=== PATIENT | male | born 1980 | race Caucasian/White ===

== ENCOUNTER → 2016-06-23 | Outpatient (CLI) | payer MEDICAID, OTHER, SELFPAY ==
[~2016-06-23] MED LIST: OXYC-141 PO; ZOFR4TAB3 PO
[2016-06-23 21:11] LABS: ALBUMIN 4.2 GM/DL (3.2-5.2); ALBUMIN/GLOBULIN RATIO 1.31 (1.00-1.93); ALKALINE PHOSPHATASE 54 U/L (45-117); ALT/SGPT 38 U/L (12-78); ANION GAP 9 MEQ/L (8-16); AST/SGOT 17 U/L (15-37); BILIRUBIN,TOTAL 0.6 MG/DL (0.2-1.0); BLOOD UREA NITROGEN 11 MG/DL (7-18); CALCIUM LEVEL 8.8 MG/DL (8.5-10.1); CARBON DIOXIDE LEVEL 26 MEQ/L (21-32); CHLORIDE LEVEL 107 MEQ/L (98-107); CHOLESTEROL LEVEL 171 MG/DL (<200); CREATININE FOR GFR 0.76 MG/DL (0.70-1.30); GLOMERULAR FILTRATION RATE > 60.0 (>60); GLUCOSE, FASTING 85 MG/DL (70-105); POTASSIUM SERUM 4.3 MEQ/L (3.5-5.1); SODIUM LEVEL 142 MEQ/L (136-145); TOTAL PROTEIN 7.4 GM/DL (6.4-8.2); TRIGLYCERIDES LEVEL 113 MG/DL (<150)
== END ==
LOC: M ADAMS 13:09
PROVIDERS: ATTEND Physician Assistant Medical
DX: Z00.00 Encounter for general adult medical examination without abnormal findings (principal); E78.2 Mixed hyperlipidemia; E55.9 Vitamin D deficiency, unspecified

== ENCOUNTER → 2019-04-25 | Outpatient (CLI) | payer OTHER ==
[~2019-04-25] MED LIST changes: +ZOFR4TAB14 PO; -ZOFR4TAB3 PO
--- NOTE | 2019-04-25 12:10 | REP ---
RIGHT KNEE, FIVE VIEWS: There is no evidence of an acute fracture, dislocation or intrinsic bone disease. Joint spaces appear unremarkable. I do not see a definite joint effusion. IMPRESSION: No fracture or dislocation. Further evaluation may be made with MRI if clinically indicated. Electronically Signed by Kian Austin MD 04/25/2019 04:09 P
== END ==
LOC: M ADAMS 11:04
PROVIDERS: ATTEND Physician Assistant
DX: M23.91 Unspecified internal derangement of right knee (principal)

== ENCOUNTER 2019-09-25 15:10 | Day surgery (SDC) | payer OTHER ==
[2019-09-25] MEDS ORDERED: ceFAZolin 2 GM/D5W 50 ML IV BAG (J0690 PER 500MG) As Ordered ONE (15:27)
[2019-09-25] MEDS ORDERED: ceFAZolin 2 GM/D5W 50 ML IV BAG (J0690 PER 500MG) ONE (15:27)
[2019-09-25] MEDS ORDERED: ceFAZolin 1GM VIAL (J0690 PER 500MG) ONE (15:27)
[2019-09-25] MEDS ORDERED: ceFAZolin 1GM VIAL (J0690 PER 500MG) As Ordered ONE (15:28)
[2019-09-25] MEDS ORDERED: propofoL 200 MG/20 ML VIAL As Ordered ONE ×2 (15:55→17:15)
[2019-09-25] MEDS ORDERED: fentaNYL 250 MCG/5 ML INJECTION (J3010) As Ordered ONE (15:58)
[2019-09-25] MEDS ORDERED: MIDAZOLAM INJ 2MG/2ML VIAL (J2250 PER 1MG) As Ordered ONE (15:59)
[2019-09-25] MEDS ORDERED: ONDANSETRON 4MG/2ML VIAL As Ordered ONE ×2 (16:01→18:41)
[2019-09-25] MEDS ORDERED: LIDOCAINE 2% 100MG/5ML SDV (FOR ANES.) As Ordered ONE (16:01)
[2019-09-25] MEDS ORDERED: PHENYLephrine HCL 500 MCG/5 ML (100MCG/ML) SYRINGE (J2370) As Ordered ONE ×2 (16:33→17:19)
[2019-09-25] MEDS ORDERED: LIDOCAINE 1% SDV 30ML VIAL As Ordered ONE (16:35)
[2019-09-25] MEDS ORDERED: BUPIVACAINE HCL 0.25% 30ML VIAL As Ordered ONE (16:35)
[2019-09-25] MEDS ORDERED: ACETAMINOPHEN 1000MG 100ML IV BTL (OFIRMEV) (J0131 PER 10MG) As Ordered ONE (17:00)
[2019-09-25] MEDS ORDERED: ePHEDrine SULFATE 25 MG/5 ML(5MG/ML) SYRINGE As Ordered ONE (17:11)
[2019-09-25] MEDS ORDERED: HYDROmorphone HCL 2 MG/ML 1ML VIAL (J1170) As Ordered ONE (17:56)
[2019-09-25] MEDS ORDERED: ONDANSETRON 4MG/2ML VIAL ONE (18:40)
[2019-09-25] MEDS ORDERED: PERCOCET 5MG/325MG TAB As Ordered ONE ×2 (18:40→19:16)
[2019-09-25] MEDS ORDERED: PERCOCET 5MG/325MG TAB ONE ×2 (18:40→19:16)
--- NOTE | 2019-11-29 13:19 | RO ---
DATE OF PROCEDURE: 09/25/2019 PREOPERATIVE DIAGNOSIS: Right testicular mass. POSTOPERATIVE DIAGNOSIS: Right testicular mass. PROCEDURES: Right radical orchiectomy. SURGEON: Edwin Mandel MD ROBOTICS TECHNICIAN: None. ANESTHESIA: General. 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 He was brought to the operating room today for the above listed procedure. DESCRIPTION OF PROCEDURE: The patient was brought to the operating room and general anesthesia was induced. Prophylactic antibiotics were infused. He was then placed in supine position and prepped and draped in the usual sterile fashion. At this point, an approximately 4-5 cm inguinal incision was made. We then dissected down through the subcutaneous tissue. At this point, the external oblique fascia was opened using cautery. The right spermatic cord was then identified. A Salvisa drain was placed around the cord. At this point, the testicle was pushed up through the right inguinal canal and all of the gubernacular fibers were released using Bovie electrocautery. Once the testicle was completely released from the scrotum, the spermatic cord was dissected proximally using electrocautery. We dissected up to the level of the internal ring. At this point, a right angled clamp was placed around the cord. The cord was then into two packets just distal to the clamp and each packet was ligated with a 0-silk suture. Then, a 0-silk ligature was placed proximal to the right angled clamp. The spermatic cord was then transected just distal to the 0- silk ties and then the testicle and spermatic cord were handed off the table to be sent for pathologic analysis. The wound was irrigated. At this point, we checked for hemostasis and there was no active bleeding. We then closed the fascia using a running 2-0 Vicryl suture. The subcutaneous tissue was then reapproximated using interrupted 3-0 Vicryl suture. The skin was closed with a running 4-0 Monocryl subcuticular stitch and then Dermabond was applied. This marked the conclusion of the procedure. The patient was then awakened from anesthesia and transferred to the recovery room in stable condition. ESTIMATED BLOOD LOSS: 10 mL. COMPLICATIONS: None. SPECIMENS: Right testicle and spermatic cord. PLAN: The patient will follow up in the clinic in a week or two for postoperative check, as well as pathology results. CORYD
== END 2019-09-25 20:33 | disposition home or self-care (01) ==
LOC: M SDC 15:10
PROVIDERS: ATTEND Urology
DX: C62.11 Malignant neoplasm of descended right testis (principal); E78.2 Mixed hyperlipidemia; K21.9 Gastro-esophageal reflux disease without esophagitis; Z79.899 Other long term (current) drug therapy
CPT/HCPCS: 54535; 88309; J0131; J0690; J1170; J2250; J2370; J2405; J3010; U0002

== ENCOUNTER → 2019-10-31 | Outpatient (REF) | payer OTHER | LOC: M LABDRWAD 17:48 | PROVIDERS: ATTEND Urology | DX: C62.90 Malignant neoplasm of unspecified testis, unspecified whether descended or undescended (principal) ==

== ENCOUNTER → 2020-04-29 | Outpatient (REF) | payer OTHER ==
[2020-04-29 17:25] LABS: ALBUMIN 4.6 GM/DL (3.2-5.2); ALT/SGPT 47 U/L (12-78); BILIRUBIN,TOTAL 0.6 MG/DL (0.2-1.0); BLOOD UREA NITROGEN 12 MG/DL (7-18); CARBON DIOXIDE LEVEL 30 MEQ/L (21-32); CHLORIDE LEVEL 106 MEQ/L (98-107); CHOLESTEROL LEVEL 218 MG/DL (<200); CHOLESTEROL RISK RATIO 5.317 (<5); CREATININE FOR GFR 0.81 MG/DL (0.70-1.30); GLOMERULAR FILTRATION RATE > 60.0 (>60); GLUCOSE, FASTING 88 MG/DL (70-100); HDL CHOLESTEROL 41 MG/DL (>40); LDL CHOLESTEROL 149 MG/DL (<100); NON-HDL-C 177 MG/DL; POTASSIUM SERUM 4.2 MEQ/L (3.5-5.1); SODIUM LEVEL 140 MEQ/L (136-145); TOTAL PROTEIN 7.8 GM/DL (6.4-8.2); TRIGLYCERIDES LEVEL 141 MG/DL (<150)
== END ==
LOC: M LABDRWAD 16:05
PROVIDERS: ATTEND Physician Assistant Medical
DX: E78.2 Mixed hyperlipidemia (principal)

== ENCOUNTER 2020-05-17 11:19 | Emergency (ER) | payer OTHER ==
[~2020-05-17] VITALS: Ht 177.8 cm; Wt 114.4 kg
[2020-05-17] MEDS ORDERED: SIMV40TA20 PO (11:28)
[2020-05-17] MEDS ORDERED: PANT40TA29 PO (11:28)
[2020-05-17] MEDS ORDERED: ACETAMINOPHEN 500 MG TAB PO ONE (11:35)
[2020-05-17 11:53] VITALS: O2SAT 94
[2020-05-17] MEDS ORDERED: KETOROLAC 30 MG/ML 1ML VIAL IV ONE (11:55)
--- NOTE | 2020-05-17 12:57 | REP ---
INDICATION: decreased left lower. exposed to covid. COMPARISON: No comparison study TECHNIQUE: Semi-erect portable AP radiograph. Two views. FINDINGS: There is linear platelike atelectasis and infiltrate in the left base. Subtle platelike atelectasis is seen along the dome of the diaphragm on the right as well. There is fissural thickening on the right. Heart is not enlarged. Lung lopes are otherwise clear. IMPRESSION: Infiltrate left base and platelike atelectasis both lung bases. Findings consistent with pneumonia. <Electronically signed by Aaron Ortiz > 05/17/20 [id number]
[2020-05-17 13:22] VITALS: BP 139/66
== END 2020-05-17 13:25 | disposition home or self-care (01) ==
LOC: M ED 11:19
DX: U07.1 COVID-19 (principal); J12.82 Pneumonia due to coronavirus disease 2019; E78.5 Hyperlipidemia, unspecified; K21.9 Gastro-esophageal reflux disease without esophagitis

== ENCOUNTER 2020-05-31 02:47 | Emergency (ER) | payer OTHER ==
[~2020-05-31] VITALS: Ht 180.3 cm; Wt 142.2 kg
[~2020-05-31 02:47] MED LIST changes: +PANT40TA29 PO; +SIMV40TA20 PO
[2020-05-31] MEDS ORDERED: IPRATROPIUM 0.5MG/ALBUTEROL 2.5MG INH SOL UD 3ML (DUONEB) NEB ONE (03:30)
[2020-05-31 03:42] LABS: INR 0.98; PROTHROMBIN TIME 13.2 SECONDS (12.5-14.3)
[2020-05-31 03:43] LABS: PARTIAL THROMBOPLASTIN TIME 34.1 SECONDS (24.2-38.5)
[2020-05-31 03:45] LABS: D-DIMER QUANT 322.6 ng/ml (<500)
[2020-05-31 03:59] LABS: ALBUMIN 3.9 GM/DL (3.2-5.2); ALT/SGPT 52 U/L (12-78); BILIRUBIN,DIRECT < 0.1 MG/DL (0.0-0.2); BILIRUBIN,TOTAL 0.3 MG/DL (0.2-1.0); BLOOD UREA NITROGEN 11 MG/DL (7-18); CALCIUM LEVEL 8.7 MG/DL (8.5-10.1); CARBON DIOXIDE LEVEL 25 MEQ/L (21-32); CHLORIDE LEVEL 110 MEQ/L (98-107); CPK CREATINE PHOSPHOKINASE 197 U/L (39-308); CREATININE FOR GFR 0.63 MG/DL (0.70-1.30); FERRITIN 362 NG/ML (26-388); GLOMERULAR FILTRATION RATE > 60.0 (>60); GLUCOSE, FASTING 118 MG/DL (70-100); LDH LACTATE DEHYDROGENASE 286 U/L (87-241); POTASSIUM SERUM 4.2 MEQ/L (3.5-5.1); SODIUM LEVEL 140 MEQ/L (136-145); TOTAL PROTEIN 7.6 GM/DL (6.4-8.2); TROPONIN I < 0.02 NG/ML (< 0.10)
[2020-05-31 04:10] VITALS: BP 146/85
[2020-05-31] MEDS ORDERED: predniSONE 20 MG TAB PO ONE (04:25)
--- NOTE | 2020-05-31 05:10 | REPVR ---
PROCEDURE INFORMATION: Exam: XR Chest Exam date and time: 05/31/2020 2:59 AM Age: 39 years old Clinical indication: Other: SOB, covid +; Additional info: SOB - covid + TECHNIQUE: Imaging protocol: XR of the chest. Views: 1 view. COMPARISON: SD Chest, 1 view 05/17/2020 12:17 PM FINDINGS: Lungs: Unremarkable. No consolidation. Pleural spaces: Unremarkable. No pleural effusion. No pneumothorax. Heart/Mediastinum: Unremarkable. No cardiomegaly. Bones/joints: Unremarkable. IMPRESSION: No acute findings. Electronically signed by: Paco Jones On 05/31/2020 05:10:34 AM
--- NOTE | 2020-05-31 09:35 | ECGEPIP ---
[facility] - ED Test Date: 2020-05-31 Pat Name: SCOTT RODRIGUEZ Department: Room: - Gender: Male [employer]: ALFRED : 1980 Requested By: Yifan Jackson Order Number: [id number] Reading MD: Fitz Zepeda Measurements Intervals [place] Rate: 99 P: 14 NE: 154 QRS: 6 QRSD: 94 T: 11 QT: 354 QTc: 454 Interpretive Statements Normal sinus rhythm Incomplete right bundle branch block NONSPECIFIC T WAVE ABNORMALITY(S) NO PRIORS FOR COMPARISON Electronically Signed on 05-31-2020 9:35:02 EDT by Fitz Zepeda
== END 2020-05-31 04:25 | disposition home or self-care (01) ==
LOC: M ED 02:47
DX: U07.1 COVID-19 (principal); E78.5 Hyperlipidemia, unspecified

== ENCOUNTER → 2020-07-01 | Outpatient (CLI) | payer OTHER ==
--- NOTE | 2020-07-01 09:08 | REPPI ---
INDICATION: COUGH COMPARISON: 05/17/2020 TECHNIQUE: PA and lateral. FINDINGS: The mediastinum and cardiac silhouette are normal. The lung lopes are clear and without acute consolidation, effusion, or pneumothorax. The skeletal structures are intact and normal. IMPRESSION: No acute cardiopulmonary process. <Electronically signed by Trevor Fernandez > 07/01/20 0904
== END ==
LOC: M PLAIMG 08:30
PROVIDERS: ATTEND Nurse Practitioner Family
DX: R05 Cough (principal)

== ENCOUNTER → 2020-07-29 | Outpatient (CLI) | payer OTHER ==
[~2020-07-29] MED LIST changes: +ISOVUE-370 76% 100ML VIAL As Ordered ONE
--- NOTE | 2020-07-30 05:14 | REP ---
INDICATION: TESTICULAR CA / LABS 1ST. COMPARISON: None TECHNIQUE: Axial contrast-enhanced images from the lung bases to the pubic symphysis using 100 cc Isovue 370 intravenous contrast material. Delayed images of the abdomen along with coronal and sagittal reformations obtained. This CT examination was performed using the following dose reduction techniques: Automated exposure control, adjustment of mA and/or kv according to the patient's size, and the use of iterative reconstruction technique. FINDINGS: Liver demonstrates diffuse hepatosteatosis without focal hepatic lesion. Spleen, pancreas, gallbladder, bilateral adrenal glands and kidneys are normal. The enteric system including stomach, small, and large bowel appears normal. No evidence for obstruction or acute inflammatory process. Normal terminal ileum and appendix are identified in the right lower quadrant. Pelvis demonstrates moderate to large bilateral fat containing inguinal hernias (right greater than left) and the right anterior bladder wall extends into the right inguinal hernia. The bladder itself is otherwise unremarkable in appearance. The prostate gland appears normal. No significant obvious pelvic/inguinal adenopathy identified. No ascites. No free air. No intraperitoneal or retroperitoneal adenopathy. Abdominal aorta and vasculature appear normal. Musculoskeletal structures are intact and without acute osseous abnormality. IMPRESSION: 1. No obvious acute abdominopelvic pathology appreciated. 2. No evidence for metastatic disease related to history of testicular cancer. 3. Fat containing inguinal hernias as described above. 4. Diffuse hepatosteatosis. <Electronically signed by Trevor Fernandez > 07/30/20 [id number]
== END ==
LOC: M LAB 17:22 → M RAD 17:22
PROVIDERS: ATTEND Nurse Practitioner Family
DX: C62.90 Malignant neoplasm of unspecified testis, unspecified whether descended or undescended (principal)
CPT/HCPCS: 36415; 74177; 82105; 83615; 84702; Q9967

== ENCOUNTER → 2020-08-09 | Outpatient (CLI) | payer OTHER ==
[~2020-08-09] MED LIST changes: -ISOVUE-370 76% 100ML VIAL As Ordered ONE
--- NOTE | 2020-08-09 11:52 | REP ---
INDICATION: CONTUSION OF RT SHOULDER. COMPARISON: None. TECHNIQUE: Coronal oblique T1 and fat suppressed T2. Sagittal oblique fat suppressed T2. Axial [id number] and T2 FLASH. FINDINGS: There is full-thickness T2 hyper signal through the supraspinatus tendon with fluid in the subacromial space. Some of the supraspinatus tendon appears to remain intact. Patchy T2 hyper signal is seen in the subscapularis, infraspinatus, and teres minor tendons. The biceps tendon resides within the bicipital groove. The acromion process is type 2. Moderate hypertrophic degenerative changes seen involving the acromioclavicular joint. There is a slight glenohumeral joint effusion. There is linear hyper signal in the superior labrum which appears anterior to posterior. There is glenoid and humeral head chondral thinning and irregularity. There is fluid in the subcoracoid recess. IMPRESSION: 1. High-grade partial full-thickness tear of the supraspinatus tendon. 2. Subscapularis, infraspinatus, and teres minor tendinitis/tendinosis with evidence of infraspinatus tendon full-thickness or near full-thickness tear. 3. Fluid collections as described above. 4. Evidence of a SLAP tear. 5. Other findings as described above. <Electronically signed by Lorne Wakefield > 08/09/20 [id number]
== END ==
LOC: M RAD 09:25
PROVIDERS: ATTEND Orthopaedic Surgery
DX: S40.011A Contusion of right shoulder, initial encounter (principal); X58.XXXA Exposure to other specified factors, initial encounter; Y92.89 Other specified places as the place of occurrence of the external cause; Y93.9 Activity, unspecified; Y99.9 Unspecified external cause status

== ENCOUNTER → 2020-12-26 | Outpatient (CLI) | payer OTHER ==
[~2020-12-26] MED LIST changes: +ISOVUE-370 76% 100ML VIAL ONE
[2020-12-30 13:12] LABS: AFP TUMOR TOTAL 5.5 ng/mL (0.0-8.0); HCG SERUM TUMOR MARKER QUANT < 1 mIU/mL (0-3)
== END ==
LOC: M PLAIMG 10:15
PROVIDERS: ATTEND Urology
DX: C62.11 Malignant neoplasm of descended right testis (principal)
CPT/HCPCS: 36415; 71046; 74177; 82107; 83615; 84702; Q9967

== ENCOUNTER → 2021-02-06 | Outpatient (CLI) | payer OTHER ==
[~2021-02-06] MED LIST changes: -ISOVUE-370 76% 100ML VIAL ONE
== END ==
LOC: M PLALAB 11:44
PROVIDERS: ATTEND Urology
DX: C62.90 Malignant neoplasm of unspecified testis, unspecified whether descended or undescended (principal)

== ENCOUNTER → 2021-04-15 | Outpatient (CLI) | payer OTHER ==
[2021-04-15 13:38] LABS: BASO % 0.3 % (0.0-1.0); EOS # 0.1 10^3/uL (0.0-0.5); EOS % 0.9 % (0.0-3.0); HEMATOCRIT 48.4 % (42.0-52.0); HEMOGLOBIN 15.5 g/dl (13.5-17.5); LYMPH % 29.7 % (24.0-44.0); MEAN CORPUSCULAR HEMOGLOBIN 28.7 pg (27.0-33.0); MEAN CORPUSCULAR VOLUME 89.6 fl (80.0-96.0); MONO # 0.4 10^3/uL (0.0-0.8); MONO % 6.3 % (2.0-8.0); NEUTROPHILS # 4.2 10^3/uL (1.5-8.5); NEUTROPHILS % 62.6 % (36.0-66.0); PLATELET COUNT, AUTOMATED 224 10^3/uL (150-450); WHITE BLOOD COUNT 6.7 10^3/uL (4.0-10.0)
[2021-04-15 14:05] LABS: ALBUMIN 4.2 GM/DL (3.2-5.2); ALT/SGPT 41 U/L (12-78); BILIRUBIN,TOTAL 0.5 MG/DL (0.2-1.0); BLOOD UREA NITROGEN 13 MG/DL (7-18); CALCIUM LEVEL 9.1 MG/DL (8.5-10.1); CARBON DIOXIDE LEVEL 25 MEQ/L (21-32); CHLORIDE LEVEL 106 MEQ/L (98-107); CHOLESTEROL LEVEL 185 MG/DL (<200); CREATININE FOR GFR 0.75 MG/DL (0.70-1.30); GLOMERULAR FILTRATION RATE > 60.0 (>60); GLUCOSE, FASTING 107 MG/DL (70-100); HDL CHOLESTEROL 37 MG/DL (>40); LDL CHOLESTEROL 112 MG/DL (<100); NON-HDL-C 148 MG/DL; POTASSIUM SERUM 4.2 MEQ/L (3.5-5.1); SODIUM LEVEL 138 MEQ/L (136-145); TOTAL PROTEIN 7.5 GM/DL (6.4-8.2); TRIGLYCERIDES LEVEL 180 MG/DL (<150)
== END ==
LOC: M PLALAB 09:28
PROVIDERS: ATTEND Nurse Practitioner Family
DX: Z01.818 Encounter for other preprocedural examination (principal); I10 Essential (primary) hypertension; E78.2 Mixed hyperlipidemia

== ENCOUNTER → 2022-09-21 | Outpatient (REF) | payer OTHER ==
[2022-09-21 13:31] LABS: BASO % 0.4 % (0.0-1.0); EOS # 0.1 10^3/uL (0.0-0.5); HEMATOCRIT 47.9 % (42.0-52.0); HEMOGLOBIN 15.1 g/dl (13.5-17.5); LYMPH # 2.1 10^3/uL (1.5-5.0); LYMPH % 28.5 % (24.0-44.0); MEAN CORPUSCULAR HEMOGLOBIN 29.6 pg (27.0-33.0); MEAN CORPUSCULAR HGB CONC 31.5 g/dl (32.0-36.5); MEAN CORPUSCULAR VOLUME 93.9 fl (80.0-96.0); MONO # 0.7 10^3/uL (0.0-0.8); MONO % 9.3 % (2.0-8.0); NEUTROPHILS # 4.4 10^3/uL (1.5-8.5); NEUTROPHILS % 60.5 % (36.0-66.0); PLATELET COUNT, AUTOMATED 222 10^3/uL (150-450); WHITE BLOOD COUNT 7.2 10^3/uL (4.0-10.0)
[2022-09-21 13:52] LABS: ALBUMIN 4.1 G/DL (3.2-5.2); ALKALINE PHOSPHATASE 64 U/L (46-116); ALT/SGPT 30 U/L (7.0-40); AST/SGOT 14 U/L (<34); BILIRUBIN,TOTAL 0.4 MG/DL (0.3-1.2); BLOOD UREA NITROGEN 10 MG/DL (9-23); CALCIUM LEVEL 8.9 MG/DL (8.5-10.1); CARBON DIOXIDE LEVEL 26 MMOL/L (20-31); CHLORIDE LEVEL 106 MMOL/L (98-107); CHOLESTEROL LEVEL 161 MG/DL (<200); CREATININE FOR GFR 0.62 MG/DL (0.70-1.30); GLOMERULAR FILTRATION RATE > 60.0 (>60); GLUCOSE, FASTING 112 MG/DL (60-100); HDL CHOLESTEROL 38.3 MG/DL (>40); LDL CHOLESTEROL 92.5 MG/DL (<100); NON-HDL-C 122.7 MG/DL; POTASSIUM SERUM 4.2 MMOL/L (3.5-5.1); SODIUM LEVEL 141 MMOL/L (136-145); TOTAL PROTEIN 7.1 G/DL (5.7-8.2); TRIGLYCERIDES LEVEL 151 MG/DL (<150)
[2022-09-21 13:56] LABS: HEMOGLOBIN A1c 5.9 % (4.0-6.0)
== END ==
LOC: M LABDRWAD 12:36
PROVIDERS: ATTEND Nurse Practitioner Family
DX: E78.2 Mixed hyperlipidemia (principal); R73.01 Impaired fasting glucose

== ENCOUNTER → 2023-08-16 | Outpatient (REF) | payer OTHER ==
[2023-08-16 18:54] LABS: ALBUMIN 4.3 G/DL (3.2-5.2); ALKALINE PHOSPHATASE 59 U/L (46-116); ALT/SGPT 40 U/L (7.0-40); AST/SGOT 15 U/L (<34); BILIRUBIN,TOTAL 0.9 MG/DL (0.3-1.2); BLOOD UREA NITROGEN 13 MG/DL (9-23); CALCIUM LEVEL 9.1 MG/DL (8.5-10.1); CARBON DIOXIDE LEVEL 25 MMOL/L (20-31); CHLORIDE LEVEL 107 MMOL/L (98-107); CHOLESTEROL LEVEL 185 MG/DL (<200); CHOLESTEROL RISK RATIO 5.06 (<5); CREATININE FOR GFR 0.77 MG/DL (0.70-1.30); GLOMERULAR FILTRATION RATE > 60.0 (>60); GLUCOSE, FASTING 82 MG/DL (60-100); HDL CHOLESTEROL 36.5 MG/DL (>40); LDL CHOLESTEROL 124.1 MG/DL (<100); NON-HDL-C 148.5 MG/DL; POTASSIUM SERUM 3.9 MMOL/L (3.5-5.1); SODIUM LEVEL 137 MMOL/L (136-145); TOTAL PROTEIN 7.2 G/DL (5.7-8.2); TRIGLYCERIDES LEVEL 122 MG/DL (<150)
[2023-08-16 18:56] LABS: TOTAL 25(OH) VITAMIN D 40.7 NG/ML (20.0-100.0)
== END ==
LOC: M PLALAB 17:01
PROVIDERS: ATTEND Nurse Practitioner Family
DX: E78.2 Mixed hyperlipidemia (principal); R73.03 Prediabetes; E55.9 Vitamin D deficiency, unspecified